=== PATIENT | male | born 1990 | race Caucasian/White ===

== ENCOUNTER 2017-03-11 15:20 | Emergency (ER) | payer BC ==
[~2017-03-11] VITALS: Ht 193 cm; Wt 72.0 kg
[2017-03-11 15:25] VITALS: BP 130/77
[2017-03-11] MEDS ORDERED: OXYcodone/APAP 5/325MG TABLET ONE (15:40)
[2017-03-11] MEDS ORDERED: LIDOCAINE 1%, 20ML ONE (15:41)
[2017-03-11] MEDS ORDERED: LIDOCAINE 1%, 20ML SQ ONE (16:00)
[2017-03-11] MEDS ORDERED: OXYcodone/APAP 5/325MG TABLET PO ONE (16:00)
[2017-03-11] MEDS ORDERED: BACITRACIN ZINC OINT 500U/GM, 0.9 GM ONE (16:34)
== END 2017-03-11 16:46 | disposition home or self-care (01) ==
LOC: ED 16:40
DX: S81.811A Laceration without foreign body, right lower leg, initial encounter (principal); W27.0XXA Contact with workbench tool, initial encounter; Y93.89 Activity, other specified; Y92.098 Other place in other non-institutional residence as the place of occurrence of the external cause; Y99.8 Other external cause status
CPT/HCPCS: 12032; 73590; 99284; J3490

== ENCOUNTER 2017-03-23 19:10 | Emergency (ER) | payer BC ==
[~2017-03-23] VITALS: Ht 195.6 cm; Wt 69.0 kg
[2017-03-23 19:19] VITALS: BP 127/81
== END 2017-03-23 20:10 | disposition home or self-care (01) ==
LOC: ED 19:30
DX: S81.811D Laceration without foreign body, right lower leg, subsequent encounter (principal); F17.210 Nicotine dependence, cigarettes, uncomplicated
CPT/HCPCS: 99282

== ENCOUNTER 2019-09-21 08:14 | Inpatient (IN) | payer BC, OTHER ==
[~2019-09-21] VITALS: Ht 190.5 cm; Wt 65.3 kg
--- NOTE | 2019-09-21 08:40 | NUR ---
PT REFUSING TO ANSWER RN QUESTIONS AT THIS TIME. PT KEEPS REPEATING THAT HE "IS GOING TO GET A COMMUNICATION ELECTRONIC TECHNICIAN." RN INFORMED PT THAT HE IS A ON A LEGAL HOLD. PT STILL UNCOOPERATIVE AT THIS TIME. ERMD AWARE. CONTINUOUS VITAL SIGN MONITORING. VSS. SI PRECAUTIONS IMPLEMENTED. SITTER OUTSIDE OF ROOM MONITORING PT. RN TO REASSESS PT ONCE PT HAS CALMED DOWN.
--- NOTE | 2019-09-21 08:50 | NUR ---
PT CROUCHED DOWN ON FLOOR.
--- NOTE | 2019-09-21 08:53 | NUR ---
ROLL CLAMP OPERATOR: RECEIVED CALL FROM PTS MOTHER WILLY MUSTAFA [phone]. "JUST WANTED YOU TO HAVE A HOOKER LASTER. WE ARENT CLOSE. I UNDERSTAND HE HAS SEVERED ALL HIS TIES AND THAT NO ONE IS GOING TO COME DOWN THERE"
--- NOTE | 2019-09-21 09:09 | NUR ---
PT TOOK OF ALL VITAL SIGN MONITORING. PT TOOK OFF GOWN. PT LAYING ON FLOOR MOANING. RN TO VERO GUZMAN. PT BEING UNCOOPERATIVE AT THIS TIME.
[2019-09-21] MEDS ORDERED: HALOPERIDOL 5 MG/ML IM PRN ×2 (09:30→10:00)
[2019-09-21] MEDS ORDERED: HALOPERIDOL 5 MG/ML ONE (09:31)
--- NOTE | 2019-09-21 09:32 | NUR ---
PT AGITATED SCREAMING AND HITTING THINGS IN ROOM. RN OBTAINED VERBAL ORDER FOR HALODOL 5MG IM INJECTION ONE TIME FOR AGITATION. SECURITY CALLED TO ASSIST RN.
--- NOTE | 2019-09-21 09:44 | NUR ---
PT MEDICATED PER EMAR. 3 SECURITY GUARDS HELPED RN HOLD PT FOR RN TO ADMINISTER MEDICATION. WATER PROVIDED TO PT PER REQUEST.
--- NOTE | 2019-09-21 09:49 | NUR ---
RN ASKED PT IF HE WOULD LIKE FOOD. PT DENIED.
--- NOTE | 2019-09-21 09:56 | NUR ---
PT SCREAMING AND HITTING THINGS. RN CALLED SECURITY. PT IN 4POINT LEATHER RESTRAINTS AT THIS TIME.
[2019-09-21] MEDS ORDERED: LORazepam 2 MG/ML, 1ML ONE (09:57)
[2019-09-21] MEDS ORDERED: LORazepam 2 MG/ML, 1ML IM ONE (10:00)
[2019-09-21 10:22] LABS: BASOPHILS # (AUTO) 0.01 x10^3/uL (0-0.1); BASOPHILS % (AUTO) 0 % (0-1); EOSINOPHILS # (AUTO) 0.04 x10^3/uL (0-0.4); EOSINOPHILS % (AUTO) 1 % (1-7); LYMPHOCYTES # (AUTO) 0.86 x10^3/uL (1-3.4); LYMPHOCYTES % (AUTO) 11 % (22-44); MD NO; MEAN CORPUSCULAR HEMOGLOBIN 33.4 pg (27.5-34.5); MEAN CORPUSCULAR HGB CONC 34.9 g/dL (33.2-36.2); MEAN CORPUSCULAR VOLUME 95.7 fL (81-97); MEAN PLATELET VOLUME 7.8 fL (7.4-10.4); MONOCYTES # (AUTO) 0.38 x10^3/uL (0.2-0.8); MONOCYTES % (AUTO) 5 % (2-9); NEUTROPHILS % (AUTO) 83 % (42-75); PLATELET COUNT 197 x10^3/uL (130-400); RED BLOOD COUNT 4.78 x10^6/uL (4.38-5.82); RED CELL DISTRIBUTION WIDTH 13.1 % (9.4-14.8)
--- NOTE | 2019-09-21 10:22 | NUR ---
PT LESS AGITATED AT THIS TIME. RESTRAINTS STILL NEEDED. RN EXPLAINED POC. RN DISCUSSED WITH PT IF HE CALMS DOWN AND WILL BE COOPERATIVE RN WILL REMOVE RESTRAINTS.
[2019-09-21 10:33] LABS: ALBUMIN 4.5 g/dL (3.4-5.0); ANION GAP 12 mmol/L (5-15); CALCIUM 9.1 mg/dL (8.5-10.1); CHLORIDE 110 mmol/L (98-107)
[2019-09-21 10:47] LABS: ALANINE AMINOTRANSFERASE 17 U/L (12-78); ALKALINE PHOSPHATASE 62 U/L (45-117); BILIRUBIN,TOTAL 1.9 mg/dL (0.2-1.0); CREATININE 1.23 mg/dL (0.7-1.3); TOTAL PROTEIN 7.8 g/dL (6.4-8.2)
--- NOTE | 2019-09-21 11:01 | NUR ---
MOM AT FRONT OF ED REQUESTING TO SEE PT. RN INFORMED MOM THAT PT IS ASLEEP AT THIS TIME AND WOULD CALL HER ONCE PATIENT IS AWAKE.
--- NOTE | 2019-09-21 11:30 | NUR ---
PT AWAKE. STATES HE WILL BE COOPERATIVE. RN CALLED SECURITY TO HAVE THEM REMOVE THE RESTRAINTS.
--- NOTE | 2019-09-21 11:40 | NUR ---
RESTRAINTS REMOVED. PT AMBULATED TO RESTROOM TO PROVIDE RN WITH A URINE SAMPLE. STEADY GAIT. BELONGINGS WERE PLACED IN PERSONAL BELONGINGS BAG. BAG PLACED IN LOCKER. SI PRECAUTIONS IMPLEMENTED. SITTER OUTSIDE OF ROOM MONITORING PT. LUNCH ORDERED. RN TO CONTINUE TO MONITOR.
--- NOTE | 2019-09-21 11:48 | NUR ---
REPORT TO BREAK RN.
--- NOTE | 2019-09-21 11:58 | NUR ---
BREAK RN NOTE. LUNCH PROVIDED.
[2019-09-21 12:05] LABS: MICROSCOPIC AUTO
[2019-09-21 12:12] LABS: CULTURE INDICATED? NO
[2019-09-21 12:14] LABS: AMPHETAMINE SCREEN, URINE Negative (Negative); BARBITURATE SCREEN, URINE Negative (Negative); BENZODIAZEPINE SCREEN, URINE Negative (Negative); CANNABINOID SCREEN, URINE Positive (Negative); COCAINE SCREEN, URINE Negative (Negative); METHADONE SCREEN, URINE Negative (Negative); OPIATE SCREEN, URINE Negative (Negative)
--- NOTE | 2019-09-21 12:28 | NUR ---
MEGAN WOULD LIKE RN TO PLACE PIV. PT TO RECEIVE MEDICATIONS THEN BE ADMITTED TO THE FLOOR FOR TYLENOL OVERDOSE MONITORING.
[2019-09-21] MEDS ORDERED: ONDANSETRON 2MG/ML, 2ML IVPush ONE (12:30)
--- NOTE | 2019-09-21 12:30 | NUR ---
PT WOULD LIKE TO SPEAK TO MOTHER. RN CALLED MOM TO INFORM HER THAT PT WOULD LIKE TO SEE HER. MOTHER STATED SHE WILL COME RIGHT NOW.
--- NOTE | 2019-09-21 12:37 | NUR ---
RN CALLED PHARMACY TO VERIFY MEDICATION.
[2019-09-21] MEDS ORDERED: ACETYLCYSTEINE IV ONE ×4 (12:50→18:00)
[2019-09-21] MEDS ORDERED: DEXTROSE 5% IV ONE ×4 (12:50→18:00)
[2019-09-21 12:51] LABS: INTERNATIONAL NORMALIZED RATIO 1.05 (0.93-1.1); PROTHROMBIN TIME 11.1 Seconds (9.6-11.5)
[2019-09-21] MEDS ORDERED: ONDANSETRON 2MG/ML, 2ML ONE (13:04)
--- NOTE | 2019-09-21 13:11 | NUR ---
MOTHER WILLY AT BEDSIDE.
--- NOTE | 2019-09-21 13:23 | NUR ---
[facility] AT BEDSIDE. DAD JEANNINE WOULD LIKE AN UPDATE. RN INFORMED DAD THAT SHE WILL CALL BACK ONCE RN TALKS TO PT TO SEE IF IT IS OKAY TO GIVE HIM INFORMATION. JEANNINE'S NUMBER:[phone].
--- NOTE | 2019-09-21 13:29 | NUR ---
REPORT TO DANNA ENGLE. PT TO BE TRANSPORTED TO FLOOR VIA [facility].
--- NOTE | 2019-09-21 13:50 | NUR ---
PT WOULD NOT LIKE RN TO GIVE DAD JEANNINE INFORMATION.
--- NOTE | 2019-09-21 13:57 | NUR ---
PT TRANSPORTED TO FLOOR VIA [facility] WITH LINDA
[2019-09-21] MEDS ORDERED: NICOTINE 14MG/24 HR PATCH.TD24 TD SCH (14:00)
[2019-09-21] MEDS ORDERED: POTASSIUM CHLORIDE 10% 40 MEQ/30 ML UDC PO ONE (14:00)
[2019-09-21 14:19] VITALS: BP 126/62
[2019-09-21] MEDS ORDERED: POTASSIUM CHLORIDE 20 MEQ TAB.ER.PRT ONE (14:56)
[2019-09-21 14:57] VITALS: BP 113/66
[2019-09-21 19:05] VITALS: BP 119/70
[2019-09-21 23:54] VITALS: BP 104/62
[2019-09-22 01:25] VITALS: BP 110/64
[2019-09-22 07:09] LABS: BASOPHILS # (AUTO) 0.02 x10^3/uL (0-0.1); BASOPHILS % (AUTO) 0 % (0-1); EOSINOPHILS # (AUTO) 0.04 x10^3/uL (0-0.4); EOSINOPHILS % (AUTO) 1 % (1-7); LYMPHOCYTES # (AUTO) 1.79 x10^3/uL (1-3.4); LYMPHOCYTES % (AUTO) 31 % (22-44); MD NO; MEAN CORPUSCULAR HEMOGLOBIN 32.7 pg (27.5-34.5); MEAN CORPUSCULAR HGB CONC 33.5 g/dL (33.2-36.2); MEAN CORPUSCULAR VOLUME 97.7 fL (81-97); MEAN PLATELET VOLUME 7.9 fL (7.4-10.4); MONOCYTES # (AUTO) 0.48 x10^3/uL (0.2-0.8); MONOCYTES % (AUTO) 8 % (2-9); NEUTROPHILS # (AUTO) 3.54 x10^3/uL (1.8-6.8); NEUTROPHILS % (AUTO) 60 % (42-75); PLATELET COUNT 179 x10^3/uL (130-400); RED BLOOD COUNT 4.91 x10^6/uL (4.38-5.82); RED CELL DISTRIBUTION WIDTH 13.3 % (9.4-14.8)
[2019-09-22 07:10] LABS: ALANINE AMINOTRANSFERASE 18 U/L (12-78); ALBUMIN 4.1 g/dL (3.4-5.0); ANION GAP 6 mmol/L (5-15); CALCIUM 9.3 mg/dL (8.5-10.1); CHLORIDE 106 mmol/L (98-107)
[2019-09-22 07:13] LABS: ALKALINE PHOSPHATASE 56 U/L (45-117); BILIRUBIN,TOTAL 1.8 mg/dL (0.2-1.0); CREATININE 0.81 mg/dL (0.7-1.3); TOTAL PROTEIN 7.2 g/dL (6.4-8.2)
[2019-09-22 07:46] VITALS: BP 126/72
[2019-09-22] MEDS ORDERED: LORazepam 2 MG/ML, 1ML IVPush PRN (09:00)
[2019-09-22] MEDS ORDERED: HALOPERIDOL 5 MG/ML IM PRN (09:00)
== END 2019-09-22 09:30 | disposition left against medical advice (07) | DRG 918 ==
LOC: ED 08:29 → EDIP 12:33 → 4EST 14:00
PROVIDERS: ADMIT Internal Medicine; ATTEND Internal Medicine
DX: T39.1X2A Poisoning by 4-Aminophenol derivatives, intentional self-harm, initial encounter (principal); E87.2 Acidosis; E86.0 Dehydration; F32.9 Major depressive disorder, single episode, unspecified; Z72.0 Tobacco use
CPT/HCPCS: 36415; 80053; 80307; 81001; 83735; 84100; 84443; 85025; 85610; 85730; 93005; 96365; 96372; 99291; G0378; J0132; J7060; J7070; J1630; J2060

== ENCOUNTER 2019-09-22 09:43 | Emergency (ER) | payer SELFPAY ==
[~2019-09-22] VITALS: Ht 195.6 cm; Wt 155.0 kg
--- NOTE | 2019-09-22 09:50 | NUR ---
SON ENRIQUEZ AT BS FOR EXAM. PT RELEASED FROM HANDCUFF PER OFFICER. PT VERBALLY AGREED TO STAY IN ED FOR EXAM AND TREATMENT, NEEDED. PT CALM, RESP EVEN & UNLABORED, SPEECH CLEAR, SKIN WNL. PT LEFT AMA FROM [facility] TODAY, STATES HE NEVER LEFT CAMPUS PROPERTY.
[2019-09-22 09:55] VITALS: BP 126/82
--- NOTE | 2019-09-22 10:16 | NUR ---
DILLON RN SPOKE WITH PSYCH DARIEL BLACKWOOD. UPDATED ON PT EVENTS. DARIEL STATED TO DILLON THAT SHE WOULD BE IN TO EVAL PT BY 1200 TODAY. I UPDATED PT WITH POC. PT IS CALM, PLEASANT AND COOPERATIVE WITH THIS RN.
--- NOTE | 2019-09-22 10:44 | NUR ---
WILLY MEDRANO, PT'S MOM CALLED FOR PT STATUS. ID CONFIRMED. PT GAVE VERBAL PERMISSION TO LET MOM KNOW HE'S OK; MOM NOTIFIED. WILLY'S INFO: 07/24/1965, CELL [phone].
--- NOTE | 2019-09-22 11:40 | NUR ---
SHARON VIEIRA FROM [facility] FOR CONSULT
--- NOTE | 2019-09-22 11:45 | NUR ---
BELINDA FROM [facility] CALLED REQUESTING INFORMATION R/T PT'S RECENT VISIT. STATES IT'S A FOLLOW-UP CALL FROM YESTERDAY, THAT PO[facility] WAS CONTACTED BY DR ARIZA. INFORMED BELINDA I COULD GIVE HER INFORMATION ABOUT CURRENT ED VISIT, BUT NOT PRIOR VISITS. BELINDA HENRY. CONSULTED TODAY'S CLINICAL INFORMATICS EDUCATOR WHO ADVISED TRANSFERRING CALL TO [facility]. CALL TRANSFERRED.
--- NOTE | 2019-09-22 11:50 | NUR ---
BELINDA FROM [facility] CALLED BACK, INSISTING ON GETTING INFORMATION RE: PT VISITS FROM YESTERDAY AND TODAY. [facility] STAFF WOULDN'T PROVIDE INFORMATION. VERBAL PERMISSION TO REVIEW CHART AND PROVIDE INFORMATION PER BLADIMIR Mederos, ED DIRECTOR.
--- NOTE | 2019-09-22 12:50 | NUR ---
TASK RN: Patient/Caregiver given discharge instructions and they have confirmed that they understand the instructions. Patient ambulatory with steady gait. Provided t-shirt from clothes locker. Security delivered pts sweat pants to him. Pt w/o shoes, Taxi Voucher provided
--- NOTE | 2019-09-22 13:58 | NUR ---
PATIENT'S MOTHER, WILLY, CALLED TO CHECK ON PATIENT. I TOLD HER THAT HE HAD BEEN SEEN BY OUR PSYCHIATRIC HEAD OF MUSIC AND HE HAS BEEN DISCHARGED. WILLY BECAME APPARENLTY TEARFUL OVER THE PHONE AND SAID THAT IT IS DANGEROUS THAT PATIENT WAS DISCHARGED AND THAT HE HAS A HISTORY OF LYING. CALLED JAISON VIEIRA AND NOTIFIED HER. DARIEL TO CALL PATIENT'S MOTHER.
== END 2019-09-22 12:51 | disposition home or self-care (01) ==
LOC: ED 10:26
DX: F41.1 Generalized anxiety disorder (principal)
CPT/HCPCS: 99283

== ENCOUNTER 2019-10-16 04:00 | Emergency (ER) | payer MEDICAID ==
[~2019-10-16] VITALS: Ht 193 cm; Wt 70.0 kg
--- NOTE | 2019-10-16 04:29 | NUR ---
PLACED VITALS AND RETORT CONDENSER ATTENDANT. SAFETY PRECAUTION IN PLACE.
[2019-10-16] MEDS ORDERED: ONDANSETRON 2MG/ML, 2ML ONE (04:56)
[2019-10-16] MEDS ORDERED: FAMOTIDINE 20 MG/2 ML ONE (04:56)
[2019-10-16] MEDS ORDERED: ONDANSETRON 2MG/ML, 2ML IVPush ONE (05:00)
[2019-10-16] MEDS ORDERED: FAMOTIDINE 20 MG/2 ML IVPush ONE (05:00)
--- NOTE | 2019-10-16 05:04 | NUR ---
PT TO ULTRASOUND.
[2019-10-16 05:08] LABS: BASOPHILS # (AUTO) 0.03 x10^3/uL (0-0.1); BASOPHILS % (AUTO) 0 % (0-1); EOSINOPHILS # (AUTO) 0.04 x10^3/uL (0-0.4); EOSINOPHILS % (AUTO) 0 % (1-7); LYMPHOCYTES # (AUTO) 1.69 x10^3/uL (1-3.4); LYMPHOCYTES % (AUTO) 18 % (22-44); MD NO; MEAN CORPUSCULAR HGB CONC 33.9 g/dL (33.2-36.2); MEAN CORPUSCULAR VOLUME 97.2 fL (81-97); MEAN PLATELET VOLUME 6.9 fL (7.4-10.4); MONOCYTES # (AUTO) 0.43 x10^3/uL (0.2-0.8); MONOCYTES % (AUTO) 4 % (2-9); NEUTROPHILS # (AUTO) 7.48 x10^3/uL (1.8-6.8); NEUTROPHILS % (AUTO) 77 % (42-75); PLATELET COUNT 270 x10^3/uL (130-400); RED BLOOD COUNT 4.86 x10^6/uL (4.38-5.82); RED CELL DISTRIBUTION WIDTH 13.4 % (9.4-14.8)
[2019-10-16 05:21] LABS: ALBUMIN 4.4 g/dL (3.4-5.0); ANION GAP 6 mmol/L (5-15); CALCIUM 9.1 mg/dL (8.5-10.1); CHLORIDE 108 mmol/L (98-107)
[2019-10-16 05:25] LABS: ALANINE AMINOTRANSFERASE 21 U/L (12-78); ALKALINE PHOSPHATASE 63 U/L (45-117); BILIRUBIN,TOTAL 0.5 mg/dL (0.2-1.0); CREATININE 0.91 mg/dL (0.7-1.3); TOTAL PROTEIN 7.8 g/dL (6.4-8.2)
[2019-10-16] MEDS ORDERED: LIDOCAINE 2%,20 ML JEL.PF.APP MM ONE (05:37)
--- NOTE | 2019-10-16 06:19 | NUR ---
SLEEPING NAD, EVEN UNLABORED RESPIRATIONS. VSS.
--- NOTE | 2019-10-16 07:05 | NUR ---
REPORT GIVEN TO BRITTANY CLAY.
[2019-10-16 07:13] VITALS: BP 106/61
== END 2019-10-16 07:25 | disposition home or self-care (01) ==
LOC: ED 05:35
DX: K29.20 Alcoholic gastritis without bleeding (principal); F10.220 Alcohol dependence with intoxication, uncomplicated; R94.31 Abnormal electrocardiogram [ECG] [EKG]; Y90.9 Presence of alcohol in blood, level not specified
CPT/HCPCS: 36415; 76700; 80053; 80307; 83690; 85025; 93005; 96374; 96375; 99285; J2405; J3490

== ENCOUNTER 2020-04-10 14:09 | Emergency (ER) | payer MEDICAID ==
[~2020-04-10] VITALS: Ht 195.6 cm; Wt 72.1 kg
[2020-04-10 14:20] VITALS: BP 112/79
--- NOTE | 2020-04-10 15:10 | NUR ---
PT AMBULATORY TO ROOM FROM LOBBY.
--- NOTE | 2020-04-10 15:24 | NUR ---
ERP IN TO SEE PT.
== END 2020-04-10 16:19 | disposition home or self-care (01) ==
LOC: ED 15:35
DX: S83.422A Sprain of lateral collateral ligament of left knee, initial encounter (principal); S63.521A Sprain of radiocarpal joint of right wrist, initial encounter; S93.492A Sprain of other ligament of left ankle, initial encounter; F17.210 Nicotine dependence, cigarettes, uncomplicated; W19.XXXA Unspecified fall, initial encounter; Y93.89 Activity, other specified; Y92.488 Other paved roadways as the place of occurrence of the external cause; Y99.8 Other external cause status
CPT/HCPCS: 99284; 99406

== ENCOUNTER 2020-07-09 15:49 | Emergency (ER) | payer MEDICAID ==
[~2020-07-09] VITALS: Ht 195.6 cm; Wt 73.1 kg
--- NOTE | 2020-07-09 16:37 | NUR ---
PT C/O HEADACHE, NAUSEA, AND VOMITING THAT STARTED THIS AM. PAIN 10/10. PT IS ANXIOUS AND CRYING. PT STATES HE THINKS ITS A BRAIN TUMOR BECUASE HIS UNCLE HAD ONE. PT DENIES HX OF HEADACHES. PT DENIES SOB, CP, OR DIARRHEA.
[2020-07-09 16:49] LABS: ALBUMIN 4.8 g/dL (3.4-5.0); ANION GAP 7 mmol/L (5-15); CALCIUM 9.7 mg/dL (8.5-10.1); CHLORIDE 110 mmol/L (98-107); CREATININE 0.93 mg/dL (0.7-1.3)
[2020-07-09 18:10] LABS: BASOPHILS % (AUTO) 0 % (0-1); EOSINOPHILS % (AUTO) 0 % (1-7); LYMPHOCYTES % (AUTO) 14 % (22-44); MEAN CORPUSCULAR HEMOGLOBIN 33.5 pg (27.5-34.5); MEAN CORPUSCULAR HGB CONC 34.9 g/dL (33.2-36.2); MEAN PLATELET VOLUME 7.6 fL (7.4-10.4); MONOCYTES % (AUTO) 7 % (2-9); NEUTROPHILS % (AUTO) 79 % (42-75); PLATELET COUNT 225 x10^3/uL (130-400); RED BLOOD COUNT 5.06 x10^6/uL (4.38-5.82); RED CELL DISTRIBUTION WIDTH 12.7 % (9.4-14.8)
[2020-07-09 18:11] LABS: MD NO
[2020-07-09 19:18] LABS: BARBITURATE SCREEN, URINE Negative (Negative); BENZODIAZEPINE SCREEN, URINE Negative (Negative); CANNABINOID SCREEN, URINE Positive (Negative); COCAINE SCREEN, URINE Negative (Negative); METHADONE SCREEN, URINE Negative (Negative); OPIATE SCREEN, URINE Negative (Negative)
[2020-07-09 19:20] LABS: AMPHETAMINE SCREEN, URINE Negative (Negative)
[2020-07-09] MEDS ORDERED: ACETAMINOPHEN 500 MG TABLET PO ONE (19:30)
[2020-07-09] MEDS ORDERED: ONDANSETRON ODT 8 MG PO ONE (19:30)
[2020-07-09] MEDS ORDERED: ACETAMINOPHEN 500 MG TABLET ONE (19:32)
[2020-07-09] MEDS ORDERED: ONDANSETRON ODT 8 MG ONE (19:32)
[2020-07-09 19:45] VITALS: BP 124/74
== END 2020-07-09 19:47 | disposition home or self-care (01) ==
LOC: ED 19:42
DX: F04 Amnestic disorder due to known physiological condition (principal); R51.9 Headache, unspecified; F10.10 Alcohol abuse, uncomplicated; F12.10 Cannabis abuse, uncomplicated; R11.2 Nausea with vomiting, unspecified; Y90.0 Blood alcohol level of less than 20 mg/100 ml
CPT/HCPCS: 36415; 70450; 72125; 80048; 80307; 80320; 82040; 85025; 99285; Q0162; G0480